=== PATIENT | male | born 1955 | race Hispanic/Latino ===

== ENCOUNTER 2020-12-22 09:12 | Emergency (ER) | payer BC, SELFPAY ==
--- NOTE | ~2020-12-22 | XR_ITS ---
XR wrist RT min 3V DATE: 12/22/2020 09:46 INDICATION: Injury, lateral pain TECHNIQUE: 4 views COMPARISON: None FINDINGS: There is severe joint space narrowing and prominent spruing at the radiocarpal joint, espec ially the radiolunate joint. There is spurring at the radioulnar joint. No fracture or dislocation, periosteal reaction or bone destruction. IMPRESSION: Osteoarthritic changes Reviewed, dictated and finalized at location [employer]. [employer] MACHINE OPERATOR IMPRESSION: Osteoarthritic changes
[2020-12-22 09:16] VITALS: BP 153/102; PULSE 94; RESP 20; TEMP 36.8; O2SAT 96
--- NOTE | 2020-12-22 10:54 | ED.GENADULT ---
HPI - General Adult General Chief complaint: Extremity Injury, Upper Stated complaint: right hand injury Time Seen by Provider: 12/22/20 09:14 Source: patient Mode of arrival: ambulatory Limitations: no limitations History of Present Illness HPI narrative: Patient 65-year-old male who presents with right wrist pain along the radial aspect works as a robotics mechanic and notes that he was working in the cold and has since been having aching pain denies other injury or trauma pain is worse with activity patient presents with wrap. Patient has an orthopedist but has not contacted them about this Related Data Allergies Allergy/AdvReac Type Severity Reaction Status Date / Time No Known Allergies Allergy Verified 12/22/20 09:31 Review of Systems Review of Systems: Narrative: CONSTITUTIONAL: Denies fever, chills, or sweats. GENITOURINARY: Denies dysuria or hematuria. SKIN: Denies rash or itching. MUSCULOSKELETAL: Denies myalgia. NEUROLOGIC: Denies numbness or weakness. Exam Narrative: Exam Narrative: GENERAL: Well-appearing, well-nourished, and in no acute distress. HEAD: Normocephalic, atraumatic. EYES: PERRLA and EOMI. ENT: Nares clear, no rhinorrhea or epistaxis. Mucous membranes moist. ABDOMEN: Soft, nontender, nondistended EXTREMITIES: Normal range of motion. No edema. Tenderness along the radial aspect of the right wrist SKIN: Warm, dry, no rash. NEURO: No focal deficits. Alert and oriented x3. Neurovascularly intact. Capillary refill less than 2 seconds PSYCH: Normal mood and affect. Course Course Emergency Course: Patient in the room no distress aware of case findings treatment plan diagnosis will follow with his orthopedist felt appropriate for outpatient reevaluation Vital Signs Vital signs: Vital Signs Temperature 98.2 F 12/22/20 09:16 Pulse Rate 94 12/22/20 09:16 Respiratory Rate 20 12/22/20 09:16 Blood Pressure 153/102 H 12/22/20 09:16 Pulse Oximetry 96 12/22/20 09:16 Temperature 98.2 F 12/22/20 09:16 Pulse Rate 94 12/22/20 09:16 Respiratory Rate 20 12/22/20 09:16 Blood Pressure 153/102 H 12/22/20 09:16 Pulse Oximetry 96 12/22/20 09:16 Medical Decision Making MDM Narrative Medical decision making narrative: Patients injury or pain is consistent with musculoskeletal etiology. No signs of neurological or vascular compromise on exam. Compartments and tisues are soft without signs of compartment syndrome. Pain is felt appropriate for further evaluation on an outpatient basis. Vital Signs Vital Signs: Vital Signs Temperature 98.2 F 12/22/20 09:16 Pulse Rate 94 12/22/20 09:16 Respiratory Rate 20 12/22/20 09:16 Blood Pressure 153/102 H 12/22/20 09:16 Pulse Oximetry 96 12/22/20 09:16 Temperature 98.2 F 12/22/20 09:16 Pulse Rate 94 12/22/20 09:16 Respiratory Rate 20 12/22/20 09:16 Blood Pressure 153/102 H 12/22/20 09:16 Pulse Oximetry 96 12/22/20 09:16 Discharge Plan Discharge Clinical Impression: Sprain and strain of wrist Patient Disposition: Home, Self-Care Condition: Stable Instructions: Antibiotic Form, Arthralgia (ED) Additional Instructions: Follow-up with primary care in the next 7 days and your orthopedist Return if your symptoms worsen or concerns or any increase in redness swelling pain fever over 100.5 or any loss of feeling or function in the extremity Only take medications as directed Follow patient education sheet Prescriptions: New meloxicam 15 mg tablet 15 mg PO DAILY Qty: 7 RF: 0 Follow-up/Referrals: Víctor,Bonnie Gonsales MD [Primary Care Provider] - Stand Alone Forms: Work/School Release IP
[2020-12-22 11:03] VITALS: BP 155/98; PULSE 90; RESP 18; O2SAT 100
== END 2020-12-22 11:04 | disposition home or self-care (01) ==
PROVIDERS: Emergency Provider Emergency Medicine; PCP Internal Medicine
DX: S63.501A Unspecified sprain of right wrist, initial encounter (principal); S66.911A Strain of unspecified muscle, fascia and tendon at wrist and hand level, right hand, initial encounter; X58.XXXA Exposure to other specified factors, initial encounter
CPT/HCPCS: 73110; 99283

== ENCOUNTER 2021-04-15 13:43 | Emergency (ER) | payer BC, SELFPAY ==
[2021-04-15 13:53] VITALS: BP 123/82; PULSE 69; RESP 18; TEMP 37; O2SAT 97
[2021-04-15 14:14] VITALS: BP 123/82; PULSE 69; RESP 18; TEMP 37; O2SAT 97
--- NOTE | 2021-04-15 14:15 | ED.SKABFB ---
HPI - Skin/Abscess/Foreign Bdy General Chief complaint: Skin/Abscess/Foreign Body Stated complaint: insect bites Time Seen by Provider: 04/15/21 14:05 Source: patient Mode of arrival: ambulatory Limitations: no limitations History of Present Illness HPI narrative: David Rodríguez is a 65 yo male with a PMH of high cholesterol, elevated uric acid, [facility] lesion on the right upper chest wall with questionable tick bite and 2 other lesions on the one on the left and 1 in the lower middle abdomen from being at the [facility] last weekend. Areas are tender and indurated. One on the upper right has scabbed it was unroofed but is still quite large and tender Related Data Home Medications Medication Instructions Recorded Confirmed allopurinol 100 mg PO DAILY 04/15/21 04/15/21 atorvastatin 20 mg PO DAILY 04/15/21 04/15/21 Allergies Allergy/AdvReac Type Severity Reaction Status Date / Time No Known Allergies Allergy Verified 04/15/21 13:47 Review of Systems Review of Systems: Narrative: CONSTITUTIONAL: Denies fever, chills, sweats. EYES: Denies visual changes, redness, discharge. ENT: Denies rhinorrhea, congestion, sore throat, otalgia. CARDIOVASCULAR: Denies chest pain, palpitations, edema. RESPIRATORY: Denies dyspnea, wheezing, cough GASTROINTESTINAL: Denies abdominal pain, nausea, vomiting, diarrhea. GENITOURINARY: Denies dysuria, hematuria, abnormal discharge SKIN: Denies rash or itching. 3 lesions on abdomen. 2 of them are indurated, need to open the one on the upper right NEUROLOGIC: Denies numbness, or focal weakness. PSYCHIATRIC: Denies anxiety or depression. PMFSH Past Medical History Medical History Elevated uric acid in blood High cholesterol Social History Social History (Updated 04/15/21 @ 14:25 by Arabella Arellano CNP) Smoking status: Never smoker Alcohol intake: current Gender identity (if verbalized by the patient): Male Comments At time of signature, I agree with nursing past medical, surgical, social and family history. There is no relevant family history pertinent to the presenting complaint. Exam Narrative: Exam Narrative: GENERAL: This is a well-nourished, well-developed patient, in mild distress. HEAD: normocephalic, atraumatic. EYES: PERRL. Sclera clear/white. Vision is grossly intact. EARS: External ears normal, auditory canals clear and without drainage, TMs normal without perforation. Hearing grossly intact. NOSE: External nose normal without nasal discharge, nares without redness, no rhinorrhea. THROAT: Mucous membranes moist, posterior pharynx NECK: Neck supple, non-tender CARDIOVASCULAR: Regular rate and rhythm without murmurs, gallops, or rubs. RESPIRATORY: Clear to auscultation. Breath sounds equal bilaterally. No wheezes, rales, or rhonchi. GASTROINTESTINAL: Abdomen soft, non-tender, SKIN: warm, intact with 3 suspicious lesions - partial insect of scab- possibly tick- and 2/3 indurated NEURO: awake, alert, and oriented to person, place and time. There were no obvious focal neurologic abnormalities. Steady gait EXTREMITIES: Normal range of motion. BACK: Nontender without deformity Course Course Emergency Course: Patient comes [facility] with 3 lesions of abdomen after being at [facility] last week Sunday working-suspect it could be to bite Tried to open lesion on right upper quadrant quadrant as 3 x 2 and very indurated and tender-blood only after removal of scab-discussion decided to start patient on doxycycline 100 mg 1 twice daily x14 days; discussed future tick removal methods Vital Signs Vital signs: Vital Signs Temperature 98.6 F 04/15/21 13:53 Pulse Rate 04/15/21 13:53 Respiratory Rate 04/15/21 13:53 Blood Pressure 123/82 04/15/21 13:53 Pulse Oximetry 97 04/15/21 13:53 Temperature 98.6 F 04/15/21 14:14 Pulse Rate 04/15/21 14:14 Respiratory Rate 04/15
== END 2021-04-15 14:40 | disposition home or self-care (01) ==
PROVIDERS: Emergency Provider Nurse Practitioner; PCP Internal Medicine
DX: S20.361A Insect bite (nonvenomous) of right front wall of thorax, initial encounter (principal); W57.XXXA Bitten or stung by nonvenomous insect and other nonvenomous arthropods, initial encounter; L03.311 Cellulitis of abdominal wall; E78.00 Pure hypercholesterolemia, unspecified
CPT/HCPCS: 10160; 99213; G0463

== ENCOUNTER 2021-09-06 01:22 | Day surgery (SDC) | payer BC, SELFPAY ==
--- NOTE | 2021-09-05 06:45 | PM.HPGS ---
History of Present Illness History of Present Illness Consent: Risks, benefits, and alternatives have been discussed and questions answered. Patient agrees to proceed with procedure. Chief complaint: chronic hoarseness Narrative: David Rodríguez is with a long history of very raspy voice unresponsive to medical managementa 66 year old male Review of Systems Review of Systems: All systems reviewed & are unremarkable except as noted in HPI and below PMFSH Past Medical History Medical History Elevated uric acid in blood High cholesterol Social History Social History Alcohol intake: current Substance use: never Gender identity (if verbalized by the patient): Male Meds Home Medications and Allergies Home Medications Medication Instructions Recorded Confirmed Type allopurinol 100 mg PO DAILY 04/15/21 04/15/21 History atorvastatin 20 mg PO DAILY 04/15/21 04/15/21 History doxycycline hyclate 100 mg PO BID #28 tablet 04/15/21 Rx methylprednisolone 4 mg tablets in See Rx Instructions PO PER PKG DIR 07/18/21 07/18/21 Rx a dose pack #21 ea Allergies Allergy/AdvReac Type Severity Reaction Status Date / Time No Known Allergies Allergy Verified 08/22/21 09:49 Exam Narrative: chest clear heart without murmurs abdomen soft extremities negative cords markedly swollen Assessment and Plan Additional Plan plan microlaryngoscopy and biopsy
[2021-09-05 09:29] VITALS: BMI 31.4
[2021-09-06] VITALS (10 sets, daily range): BP systolic 101–148; BP diastolic 64–91; PULSE 57–71; RESP 12–20; TEMP 36.2–36.3; O2SAT 96–100
--- NOTE | 2021-09-06 06:20 | WPDHPUPDATE1 ---
History and Physical Update Update Date/Time: 09/06/21 06:20 History and Physical has been reviewed, including an updated exam of the patient. There are NO changes in the patient's condition. Risks, benefits, and alternatives have been discussed and questions answered. Patient agrees to proceed with procedure.
--- NOTE | 2021-09-06 07:30 | ECG_ITS ---
Measurements Intervals [place] Rate: 65 P: 56 VA: 157 QRS: 45 QRSD: 84 T: 50 QT: 379 QTc: 396 Interpretive Statements SINUS RHYTHM BASELINE ARTIFACT- I, II, AVR, AVL, AVF NORMAL ECG Electronically Signed On 09-06-2021 8:06:46 CDT by Bird Pappas D.O.
[2021-09-06] MEDS: LACTATED RINGERS 1,000 ML 30 ML IV CONT (07:49)
--- NOTE | 2021-09-06 08:35 | WPDANESEPPF ---
Anes - Initial Pre Proc Eval Procedure: Operation Date: 09/06/21 09:15 Proposed Procedures p Microlaryngoscopy with Biopsy - Raheem Hall MD Date/Time: 09/06/21 08:35 Surgeon: Raheem Hall MD Pre Op Diagnosis: chronic hoarseness Patient Data Age: 66 Gender: M Height: 1.68 m Weight: 88.45 kg Last Vital Signs Temp 36.2 C L 09/06/21 07:39 Pulse 67 09/06/21 07:39 Resp 18 09/06/21 07:39 BP 148/84 H 09/06/21 07:39 Pulse Ox 97 09/06/21 07:39 Allergies Allergy/AdvReac Type Severity Reaction Status Date / Time No Known Allergies Allergy Verified 09/06/21 07:37 Home Medications Medication Instructions Recorded Confirmed Type allopurinol 100 mg PO HS 04/15/21 09/06/21 History atorvastatin 20 mg PO HS 04/15/21 09/06/21 History Patient hx anesthesia problems: none Family hx anesthesia problems: none Results Review: All pre-operative results and documents have been reviewed as part of the pre-operative evaluation. [facility] Past Medical History Medical History (Updated 09/06/21 @ 08:36 by Guerrero Hughes MD) Elevated uric acid in blood High cholesterol History of lower leg fracture Obesity Surgical History Surgical History (Updated 09/06/21 @ 08:36 by Guerrero Hughes MD) History of shoulder surgery Social History Social History Smoking packs per day: 1 Smoking cigarettes per day: 20.0 Years smoked: 10 Smoking pack-years: 10.00 Smoking status: Former smoker Smoking end date: 11/05/03 Alcohol intake: never Substance use: never Substance use type: does not use Living arrangements: with family Gender identity (if verbalized by the patient): Male Spiritual care concerns: No Anes - Eval Final PreProcedure Day of Procedure 09/06/21 08:35 Patient weight: obese Heart: regular rate and rhythm Lungs: clear to auscultation Airway: Mallampati scale class II Neurological: alert and oriented Last oral intake: >/= 8 hours ASA classification: III Emergent: no Anesthetic plan: proceed Anesthesia type and monitoring: general ETT and standard monitoring Results Review: All pre-operative results and documents have been reviewed as part of the pre-operative evaluation. Informed Consent: The patient's anesthetic plan and its attendant risks and benefits were discussed with the patient/family/POA. Questions were solicited and answers provided to the satisfaction of the patient/family/POA.
--- NOTE | 2021-09-06 10:34 | W.PM.PROC2 ---
Procedure Note - Detailed Date of Procedure 09/06/21 Pre-op Diagnosis chronic hoarseness Post-op Diagnosis same Procedure Performed Microlaryngoscopy and biopsy Surgeon Raheem Hall MD Description of Procedure Patient was prepped and draped fashion anesthesia laryngoscope should to the level of glottis with the aid of the microscope micro technique a lesion on the left anterior vocal cords identified and biopsied sent for pathologic examination patient awakened returned to recovery in good condition
[2021-09-06] MEDS: fentaNYL CITRATE INJ (*CRX) 100 MCG/2 ML VIAL 25 MCG IV PUSH (11:16)
== END 2021-09-06 12:25 | disposition home or self-care (01) ==
PROVIDERS: PCP Internal Medicine; Visit Provider Otolaryngology
PROC: 0CJS8ZZ Inspection of Larynx, Via Natural or Artificial Opening Endoscopic (ICD-10-PCS; CPT 31575; principal; 2021-09-06 09:15)
DX: R49.0 Dysphonia (principal); E78.00 Pure hypercholesterolemia, unspecified; E66.9 Obesity, unspecified; Z68.31 Body mass index [BMI] 31.0-31.9, adult; Z87.891 Personal history of nicotine dependence
CPT/HCPCS: 31536; 88305; 93005; A9270; J0330; J2250; J2704; J3010; J7120

== ENCOUNTER 2021-10-27 02:17 | Day surgery (SDC) | payer BC, SELFPAY ==
[2021-10-10 13:09] VITALS: BMI 32.7
--- NOTE | 2021-10-10 13:12 | PC.NURSE ---
Report to the Outpatient Waiting Room, entrance under the green pavilion located off [facility], at time 0745 on date 10/13/21. OR Time: 0945. - You and your visitor will be asked a series of questions to screen for COVID 19 for your protection. - A mask is required within the hospital. - Only one visitor is allowed at this time. Patient visitors will be guided where to wait when not with patient. Preoperative COVID Testing Requirements: No COVID Test needed if: (proof is required; if not received patient will have Rapid Test prior to entry) - Patient has received COVID Vaccine at least 14 days prior to procedure date or - Patient has positive COVID test result within last 90 days of surgery date. COVID Test needed if above criteria is not met If not COVID vaccinated a COVID test must be conducted within 72 hours of surgery and patient is asked to isolate self from time of testing until procedure. You will go to the [facility] for your COVID testing. The [facility] is located at the corner of [address] [facility]. You will only be called if COVID results are positive and your surgeon may reschedule your elective surgery date. Patients may have clear liquids (water, carbonated beverages, clear teas, apple juice) until 3 hours prior to surgery with a maximum of 20 ounces. - No food from midnight until time of surgery - Infants may have breast milk until 4 hours before surgery, formula 6 hours prior to surgery. - Children will be allowed to drink immediately following surgery. If applicable, please bring a bottle or sippy cup to assist with drinking. Juice, water, soda, and popsicles are readily available. For infants on formula, please bring formula the day of surgery. Pacifiers are allowed. Take the following medications with a SIP of water the morning of surgery: NONE Medications to discontinue per physician: N/A Date to take last dose: N/A Please no make-up, nail tajik, hairspray, perfume, deodorant, or body powder the day of surgery. No jewelry (including any body piercings) or valuables the day of surgery, leave them at home. Please take a shower or bath the night before, or the morning of, surgery with an antibacterial soap. Wear comfortable, loose fitting clothing. Children are encouraged to wear pajamas. - Jewelry must be removed prior to entering the operating room. Rings and piercings that are not removed may be cut off. - The hospital will not accept responsibility for valuables. - Please leave all valuables, including medications, at home the day of surgery. If you are going home after surgery, a licensed company driver must drive you home. - NO public transportation without another adult. - We recommend that an adult stay with you for 24 hours following discharge. - We also recommend that you do not drive, make important decision, drink alcoholic beverages, or take any drugs that were not prescribed by your health care provider for at least 24 hours after your discharge time. For Pediatric surgeries, we recommend two adults accompany the child home (only one inside the building at this time). Follow any additional instructions given to you from your surgeon. Telephone instructions given to WILLY EMERSON and asked if any additional questions and then verbalized understanding. Patient advised to call surgeon office or pre surgery nurse liaison [phone] if any additional questions.
--- NOTE | 2021-10-12 06:44 | PM.HPGS ---
History of Present Illness History of Present Illness Consent: Risks, benefits, and alternatives have been discussed and questions answered. Patient agrees to proceed with procedure. Chief complaint: left neck mass Narrative: David Rodríguez is a 66 year old male With a long history of a left neck mass Review of Systems Review of Systems: All systems reviewed & are unremarkable except as noted in HPI and below PMFSH Past Medical History Medical History Elevated uric acid in blood High cholesterol History of lower leg fracture Obesity Surgical History Surgical History History of shoulder surgery Social History Social History Smoking packs per day: 1 Smoking cigarettes per day: 20.0 Years smoked: 10 Smoking pack-years: 10.00 Smoking status: Former smoker Tobacco type: cigarettes Smoking end date: 11/05/03 Alcohol intake: never Substance use: never Substance use type: does not use Living arrangements: with family Gender identity (if verbalized by the patient): Male Spiritual care concerns: No Meds Home Medications and Allergies Home Medications Medication Instructions Recorded Confirmed Type allopurinol 100 mg PO HS 04/15/21 10/10/21 History atorvastatin 20 mg PO HS 04/15/21 10/10/21 History Allergies Allergy/AdvReac Type Severity Reaction Status Date / Time No Known Allergies Allergy Verified 10/10/21 13:09 Exam Narrative: chest clear heart without murmurs abdomen soft large left neck mass behind the left ear measuring 6.5 cm Assessment and Plan Additional Plan plan excision left neck mass
--- NOTE | 2021-10-25 06:54 | PM.HPGS ---
History of Present Illness History of Present Illness Consent: Risks, benefits, and alternatives have been discussed and questions answered. Patient agrees to proceed with procedure. 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 attempt was made at a partial excision in the past has a large 6-7 cm mass at this point Review of Systems Review of Systems: All systems reviewed & are unremarkable except as noted in HPI and below PMFSH Past Medical History Medical History Elevated uric acid in blood High cholesterol History of lower leg fracture Obesity Surgical History Surgical History History of shoulder surgery Social History Social History Smoking packs per day: 1 Smoking cigarettes per day: 20.0 Years smoked: 10 Smoking pack-years: 10.00 Smoking status: Former smoker Tobacco type: cigarettes Smoking end date: 11/05/03 Alcohol intake: never Substance use: never Substance use type: does not use Living arrangements: with family Gender identity (if verbalized by the patient): Male Spiritual care concerns: No Meds Home Medications and Allergies Home Medications Medication Instructions Recorded Confirmed Type allopurinol 100 mg PO HS 04/15/21 10/10/21 History atorvastatin 20 mg PO HS 04/15/21 10/10/21 History Allergies Allergy/AdvReac Type Severity Reaction Status Date / Time No Known Allergies Allergy Verified 10/10/21 13:09 Exam Narrative: chest clear heart are without murmurs abdomen soft extremities negative large 6-7 cm mass behind the left ear Assessment and Plan Additional Plan planned excision large left neck mass
[2021-10-26 08:03] VITALS: BMI 30.2
--- NOTE | 2021-10-26 08:05 | PC.NURSE ---
Report to the Outpatient Waiting Room, entrance under the green pavilion located off [facility], at time _0600____ on date __10/27/21 . OR Time: ___08 . - You and your visitor will be asked a series of questions to screen for COVID 19 for your protection. - A mask is required within the hospital. - Only one visitor is allowed at this time. Patient visitors will be guided where to wait when not with patient. Preoperative COVID Testing Requirements: No COVID Test needed if: (proof is required; if not received patient will have Rapid Test prior to entry) - Patient has received COVID Vaccine at least 14 days prior to procedure date or - Patient has positive COVID test result within last 90 days of surgery date. COVID Test needed if above criteria is not met If not COVID vaccinated a COVID test must be conducted within 72 hours of surgery and patient is asked to isolate self from time of testing until procedure. You will go to the [facility] for your COVID testing. The [facility] is located at the corner of [address] [facility]. You will only be called if COVID results are positive and your surgeon may reschedule your elective surgery date. Patients may have clear liquids (water, carbonated beverages, clear teas, apple juice) until 3 hours prior to surgery with a maximum of 20 ounces. - No food from midnight until time of surgery - Infants may have breast milk until 4 hours before surgery, infant formula 6 hours prior to surgery. - Children will be allowed to drink immediately following surgery. If applicable, please bring a bottle or sippy cup to assist with drinking. Juice, water, soda, and popsicles are readily available. For infants on formula, please bring formula the day of surgery. Pacifiers are allowed. Take the following medications with a SIP of water the morning of surgery: ____NONE Medications to discontinue per physician NONE Date to take last dose Please no make-up, nail anguillan, hairspray, perfume, deodorant, or body powder the day of surgery. No jewelry (including any body piercings) or valuables the day of surgery, leave them at home. Please take a shower or bath the night before, or the morning of, surgery with an antibacterial soap. Wear comfortable, loose fitting clothing. Children are encouraged to wear pajamas. - Jewelry must be removed prior to entering the operating room. Rings and piercings that are not removed may be cut off. - The hospital will not accept responsibility for valuables. - Please leave all valuables, including medications, at home the day of surgery. If you are going home after surgery, a licensed tow truck driver must drive you home. - NO public transportation without another adult. - We recommend that an adult stay with you for 24 hours following discharge. - We also recommend that you do not drive, make important decision, drink alcoholic beverages, or take any drugs that were not prescribed by your health care provider for at least 24 hours after your discharge time. For Pediatric surgeries, we recommend two adults accompany the child home (only one inside the building at this time). Follow any additional instructions given to you from your surgeon. Telephone instructions given to __PATIENT_and asked if any additional questions and then verbalized understanding. Patient advised to call surgeon office or pre surgery nurse liaison [phone] if any additional questions.
--- NOTE | 2021-10-26 08:09 | PC.NURSE ---
PT DENIES ANY CHNGE IN MEDICATION OR HEALTH SINCE PREVIOUS INTERVIEW.
--- NOTE | 2021-10-26 08:27 | SUR.PREOP ---
PT DENIES ANY CHANGE IN HEALTH OR MEDICATION SINCE INTERVIEW. NEW INSTRUCTIONS REVIEWED. PT DENIES ANY QUESTIONS
--- NOTE | 2021-10-26 15:26 | P.PNAN_ITS ---
Anes - Initial Pre Proc Eval Procedure: Operation Date: 10/27/21 08:45 Proposed Procedures p Excision Left Neck Mass - Raheem Hall MD Date/Time: 10/26/21 15:26 Surgeon: Raheem Hall MD Pre Op Diagnosis: left neck mass Patient Data Age: 66 Gender: M Height: 1.68 m Weight: 85 kg Allergies Allergy/AdvReac Type Severity Reaction Status Date / Time No Known Allergies Allergy Verified 10/10/21 13:09 Home Medications Medication Instructions Recorded Confirmed Type allopurinol 100 mg PO HS 04/15/21 10/26/21 History atorvastatin 20 mg PO HS 04/15/21 10/26/21 History Patient hx anesthesia problems: none Family hx anesthesia problems: none Results Review: All pre-operative results and documents have been reviewed as part of the pre-operative evaluation. [facility] Past Medical History Medical History (Updated 10/26/21 @ 15:27 by Zhang Banks MD) Chronic hoarseness Elevated uric acid in blood High cholesterol History of lower leg fracture Mass of left side of neck Obesity Parotid adenoma Vocal cord nodule Surgical History Surgical History History of shoulder surgery Social History Social History Smoking packs per day: 1 Smoking cigarettes per day: 20.0 Years smoked: 10 Smoking pack-years: 10.00 Smoking status: Former smoker Tobacco type: cigarettes Smoking end date: 11/05/03 Alcohol intake: never Substance use: never Substance use type: does not use Living arrangements: with family Gender identity (if verbalized by the patient): Male Spiritual care concerns: No Anes - Eval Final PreProcedure Day of Procedure 10/26/21 15:26 Patient weight: obese Heart: regular rate and rhythm Lungs: clear to auscultation and normal air movement Airway: Mallampati scale class II Neurological: alert and oriented Last oral intake: >/= 8 hours ASA classification: III Emergent: no Anesthetic plan: proceed Anesthesia type and monitoring: general ETT Results Review: All pre-operative results and documents have been reviewed as part of the pre-operative evaluation. Informed Consent: The patient's anesthetic plan and its attendant risks and benefits were discussed with the patient/family/POA. Questions were solicited and answers provided to the satisfaction of the patient/family/POA.
[2021-10-27] VITALS (11 sets, daily range): BP systolic 94–147; BP diastolic 40–100; PULSE 63–80; RESP 16–20; TEMP 36.2–36.4; O2SAT 95–100
--- NOTE | 2021-10-27 06:18 | WPDHPUPDATE1 ---
History and Physical Update Update Date/Time: 10/27/21 06:18 History and Physical has been reviewed, including an updated exam of the patient. There are NO changes in the patient's condition. Risks, benefits, and alternatives have been discussed and questions answered. Patient agrees to proceed with procedure.
[2021-10-27] MEDS: LACTATED RINGERS 1,000 ML 30 ML IV CONT ×2 (07:00→10:02)
[2021-10-27] MEDS: ceFAZolin 2 GM/D5W 50 ML 2 GM/50 ML BAG IVPB (08:41)
[2021-10-27] MEDS: LIDO 1%/EPINEPHRINE 1:100,000 50 ML VIAL INFILTRATE (09:00)
--- NOTE | 2021-10-27 09:45 | W.PM.PROC2 ---
Procedure Note - Detailed Date of Procedure 10/27/21 Pre-op Diagnosis left neck mass Post-op Diagnosis same Procedure Performed Excision lipoma left neck Surgeon Raheem Hall MD Description of Procedure Patient was prepped and draped usual fashion anesthesia horizontal incision made over the prominence of a 7 cm probable lipoma. Is injected with xylocaine with adrenaline dissection was done going down under the muscle to the lipoma the lobe up lipoma was massive going under the sternocleidomastoid muscle and markedly scarred because of a previous attempted removal 60% of the lipoma was removed sent for pathologic emanation some of the lipoma deep to the SCM was left undisturbed hematuria was placed in bipolar electrocautery used to control bleeding was with layers of 0 Vicryl and Monocryl and glue
--- NOTE | 2021-10-27 12:23 | SUR.PHASEII ---
Patient stable to go home per anesthesia protocol, awainting ride to clam picker
== END 2021-10-27 13:10 | disposition home or self-care (01) ==
PROVIDERS: PCP Internal Medicine; Visit Provider Otolaryngology
PROC: (CPT 21552; principal; 2021-10-27 08:45)
DX: D17.0 Benign lipomatous neoplasm of skin and subcutaneous tissue of head, face and neck (principal); L90.5 Scar conditions and fibrosis of skin; E78.00 Pure hypercholesterolemia, unspecified; E66.9 Obesity, unspecified; Z68.33 Body mass index [BMI] 33.0-33.9, adult; Z87.891 Personal history of nicotine dependence
CPT/HCPCS: 21552; 88304; A9270; J0690; J1100; J2250; J2370; J2405; J2704; J3010; J7120

== ENCOUNTER 2022-02-20 10:30 | Emergency (ER) | payer BC, SELFPAY ==
--- NOTE | 2022-02-20 10:37 | ED.URI ---
HPI - URI/Sore Throat General Chief Complaint: Upper Respiratory Infection Stated Complaint: congestion Time Seen by Provider: 02/20/22 11:02 Source: patient and RN notes reviewed Mode of arrival: ambulatory Limitations: no limitations History of Present Illness HPI Narrative: 66-year-old male presents with concern for nasal congestion, rhinorrhea, exposure to strep throat. Reports 1 week history of symptoms. Reports he occasionally takes ibuprofen before bed. Denies other [id number] intervention. He denies shortness of breath, fever, body aches, chills, sweats, nausea, vomiting, diarrhea. MD elicited complaint: cough, sore throat and nasal congestion Related Data Home Medications Medication Instructions Recorded Confirmed allopurinol 100 mg PO HS 04/15/21 02/20/22 atorvastatin 20 mg PO HS 04/15/21 02/20/22 Allergies Allergy/AdvReac Type Severity Reaction Status Date / Time No Known Allergies Allergy Verified 02/20/22 11:00 Review of Systems Review of Systems: CONSTITUTIONAL: Denies malaise, chills, sweats, or fever. EYES: Denies visual changes, redness, or discharge. ENT: Reports rhinorrhea, congestion. Denies sinus pain, otalgia and sore throat. CARDIOVASCULAR: Denies chest pain, palpitations, or edema. RESPIRATORY: Reports occasional cough. Denies dyspnea. GASTROINTESTINAL: Denies abdominal pain, nausea, vomiting, diarrhea SKIN: Denies rash or itching. MUSCULOSKELETAL: Denies myalgia. NEUROLOGIC: Reports headache. All systems reviewed & are unremarkable except as noted in HPI and below PMFSH Past Medical History Medical History Chronic hoarseness Elevated uric acid in blood High cholesterol History of lower leg fracture Mass of left side of neck Obesity Parotid adenoma Vocal cord nodule Surgical History Surgical History History of shoulder surgery Social History Social History Smoking packs per day: 1 Smoking cigarettes per day: 20.0 Years smoked: 10 Smoking pack-years: 10.00 Smoking status: Current every day smoker Tobacco type: cigarettes Smoking end date: 11/05/03 Alcohol intake: never Substance use: never Substance use type: does not use Gender identity (if verbalized by the patient): Male Spiritual care concerns: No Comments At time of signature, agree with nursing past medical, surgical, social and family history. There is no relevant family history pertinent to the presenting complaint Exam Narrative: GENERAL: Well-appearing, well-nourished, and in no acute distress. HEAD: Normocephalic EYES: PERRLA, conjunctivae clear ENT: Nares clear, clear discharge. Mucous membranes moist. TM pearly dent with dull light reflex bilaterally; no tragal tenderness. Oropharynx not erythematous without lesions. Tonsils not enlarged and without exudate, no drooling, no hoarseness, no trismus, uvula midline. NECK: Supple. No lymphadenopathy CHEST: Clear to auscultation, breath sounds equal. No wheezing, rhonchi, rales, or stridor. No respiratory distress, speaks in full sentences. HEART: Regular rate and rhythm. No murmur heard. SKIN: Warm, dry, no rash. NEURO: Alert and oriented x3. PSYCH: Normal mood and affect Course Course Emergency Course: Patient is aware of diagnosis, understands and agrees to treatment plan. Anticipatory guidance given. Patient agrees to follow-up as directed and is aware of reasons to seek care at the emergency department. Portions of this record may have been created with voice recognition software Level of Care: Express Care Visit Vital Signs Vital signs: Reviewed. MDM - URI/Sore Throat MDM Narrative Medical decision making narrative: Differential diagnosis considered: Arreguin virus, strep pharyngitis, allergic rhinitis, upper respiratory tract infection, sinusitis, rhinosinusitis, nasopharyn
[2022-02-20 10:43] VITALS: BP 131/80; PULSE 69; RESP 16; TEMP 36.4; O2SAT 96
== END 2022-02-20 11:18 | disposition home or self-care (01) ==
PROVIDERS: Emergency Provider Nurse Practitioner; PCP Internal Medicine
DX: J06.9 Acute upper respiratory infection, unspecified (principal); F17.210 Nicotine dependence, cigarettes, uncomplicated; E78.00 Pure hypercholesterolemia, unspecified; E66.9 Obesity, unspecified; Z68.30 Body mass index [BMI] 30.0-30.9, adult
CPT/HCPCS: 87081; 87880; 99213; G0463

== ENCOUNTER 2024-03-29 18:09 | Emergency (ER) | payer BC, SELFPAY ==
[2024-03-29 18:12] VITALS: BP 137/94; PULSE 71; RESP 16; TEMP 36.6; O2SAT 95
--- NOTE | 2024-03-29 19:00 | PC.NURSE ---
patient walked out of ED without difficulty and in no distress. Patient reports that he might come back tomorrow but tonight he cannot wait due to having another place to be.
== END 2024-03-29 19:20 | disposition left against medical advice (07) ==
LOC: ANHED 19:12
DX: R51.9 Headache, unspecified (principal)
CPT/HCPCS: 99199

== ENCOUNTER 2024-03-29 19:25 | Emergency (ER) | payer BC, SELFPAY ==
[2024-03-29 19:33] VITALS: BP 136/80; PULSE 58; RESP 18; TEMP 36.2; O2SAT 97
--- NOTE | 2024-03-29 19:46 | ED.GENADULT ---
HPI - General Adult General Chief complaint: Unspecified Stated complaint: Cholesterol Time Seen by Provider: 03/29/24 19:39 Source: patient and RN notes reviewed Mode of arrival: ambulatory Limitations: no limitations History of Present Illness HPI narrative: Patient presents today requesting a medication refill for his atorvastatin. States his PCP retired in January and he is waiting to see a new one next month. He ran out of pills a few days ago, but found 1 that he will take today. Related Data Home Medications Medication Instructions Recorded Confirmed allopurinol 100 mg tablet 100 mg PO HS 04/15/21 02/20/22 atorvastatin 20 mg tablet 20 mg PO HS 04/15/21 02/20/22 Allergies Allergy/AdvReac Type Severity Reaction Status Date / Time No Known Allergies Allergy Verified 03/29/24 19:33 Review of Systems Review of Systems: CONSTITUTIONAL: Denies body aches, fever, chills, or sweats. EYES: Denies visual changes, redness, or discharge. ENT: Denies rhinorrhea, congestion, sore throat, or otalgia. CARDIOVASCULAR: Denies chest pain, palpitations, or edema. RESPIRATORY: Denies cough or dyspnea. GASTROINTESTINAL: Denies abdominal pain, nausea, vomiting, or diarrhea. GENITOURINARY: Denies dysuria or hematuria. SKIN: Denies rash, itching, or wounds. MUSCULOSKELETAL: Denies back pain, joint pain, or myalgia. NEUROLOGIC: Denies headache, numbness, tingling, or weakness. PSYCH: Denies depression or anxiety. 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 High cholesterol History of lower leg fracture Mass of left side of neck Obesity Parotid adenoma Vocal cord nodule Surgical History Surgical History History of shoulder surgery Social History Social History Smoking packs per day: 1 Smoking cigarettes per day: 20.0 Years smoked: 10 Smoking pack-years: 10.00 Smoking status: Current every day smoker Tobacco type: cigarettes Smoking end date: 11/05/03 Alcohol intake: never Substance use: never Substance use type: does not use Living arrangements: with family Gender identity (if verbalized by the patient): Male Spiritual care concerns: No Comments At time of signature, I have reviewed and agree with nursing past medical, surgical, social and family history unless otherwise noted. Please see nursing chart for further information. There is no relevant family history pertinent to the presenting complaint Exam Narrative: GENERAL: Well-appearing, well-nourished, and in no acute distress. HEAD: Normocephalic, atraumatic. EYES: EOMI. No redness or drainage. Conjunctivae normal. ENT: Mucous membranes pink and moist. NECK: Normal AROM. CHEST: No respiratory distress. EXTREMITIES: Normal range of motion. SKIN: Warm, dry, no rash. Capillary refill normal. Normal skin turgor. NEURO: No focal deficits. Alert and oriented x3. Gait steady. PSYCH: Normal affect. No signs of depression or anxiety. Course Course Level of Care: Express Care Visit Vital Signs Vital signs: Vital Signs Temperature 97.1 F L 03/29/24 19:33 Pulse Rate 58 L 03/29/24 19:33 Respiratory Rate 18 03/29/24 19:33 Blood Pressure 136/80 03/29/24 19:33 Pulse Oximetry 97 03/29/24 19:33 Oxygen Delivery Room Air 03/29/24 19:33 Temperature 97.1 F L 03/29/24 19:33 Pulse Rate 58 L 03/29/24 19:33 Respiratory Rate 18 03/29/24 19:33 Blood Pressure 136/80 03/29/24 19:33 Pulse Oximetry 97 03/29/24 19:33 Oxygen Delivery Room Air 03/29/24 19:33 Reviewed Medical Decision Making [facility] Narrative Medical decision making narrative: Patient will be given a month's worth of atorvastatin to get him to his next appointment. Differential Diagnosis Differential
== END 2024-03-29 19:49 | disposition home or self-care (01) ==
PROVIDERS: Emergency Provider Nurse Practitioner
DX: E78.00 Pure hypercholesterolemia, unspecified (principal); E66.9 Obesity, unspecified; Z68.28 Body mass index [BMI] 28.0-28.9, adult; Z87.891 Personal history of nicotine dependence
CPT/HCPCS: 99211; G0463

== ENCOUNTER 2024-08-28 11:28 | Outpatient (CLI) | payer BC, SELFPAY ==
--- NOTE | ~2024-08-28 | XR_ITS ---
EXAMINATION: XR chest 2V 08/28/2024 11:42 INDICATION: Shortness of breath for one year. Hypertension. PROCEDURE: 2 view chest COMPARISON: 08/16/2017 FINDINGS: The lungs are clear. The lungs are hyperinflated which is consistent with, but not diagnost ic of chronic obstructive pulmonary disease. There is evidence of chronic granulomatous disease. The cardiomediastinal silhouette is within normal limits. There are no pleural effusions. There is no p neumothorax suspected. IMPRESSION: 1: NO ACUTE CARDIOPULMONARY DISEASE. Reviewed, dictated and finalized at location B.
== END 2024-08-28 11:29 | disposition home or self-care (01) ==
LOC: ANHIMG 11:29
PROVIDERS: PCP Family Medicine; Visit Provider Family Medicine
DX: R06.02 Shortness of breath (principal)
CPT/HCPCS: 71046